=== PATIENT | male | born 1945 | race Caucasian/White ===

== ENCOUNTER 2018-07-19 06:01 | Inpatient (IN) | payer OTHER, SELFPAY ==
[2018-07-01 10:51] VITALS: BMI 27.1
[2018-07-19] VITALS (17 sets, daily range): BP systolic 87–113; BP diastolic 53–75; PULSE 18–98; RESP 10–18; TEMP 36–36.9; O2SAT 93–100; BMI 27.1
[2018-07-19] MEDS: LACTATED RINGERS 1,000 ML 42 ML IV ×2 (07:09→12:05)
--- NOTE | 2018-07-19 08:00 | DI.RAD.S_ITS ---
PROCEDURE: XR LUMBAR SPINE 2-3V INDICATIONS: L4-5, L5-S1 TLIF TECHNIQUE: 2 views of the lumbar spine were acquired. COMPARISON: [facility] [place], [place]R LUMBAR SPINE FLEXION EXTENSION, 11/30/2017, 13:45. FINDINGS: Bones: Postsurgical changes compatible with L4-L5 and L5-S1 TLIF. Orthopedic hardware is intact. No lucencies at the bone hardware interface. Orthopedic hardware is in expected position. There is normal bony alignment. No vertebral body compression fractures. No suspicious bony lesions. Soft tissues: Overlying bowel gas pattern is normal. No suspicious soft tissue calcifications. IMPRESSION: Expected postsurgical change from L4-L5 and L5-S1 TLIF. Dictated by: Sammie Haji MD, PhD on 07/19/2018 at 11:34 Approved by: Sammie Haji MD, PhD on 07/19/2018 at 11:36
[2018-07-19] MEDS: CEFAZOLIN 2 GM/100 ML FROZ.PIGGY IV ×3 (08:15→23:38)
--- NOTE | 2018-07-19 08:57 | SUR.OPER ---
Prone on spine table, head in foam head support, padded chest and pelvic supports, gel pad at knees, lower legs supported by pillows; nipples, genitalia and toes free of pressure, arms secured on foam padded arm boards at <90 degrees abduction. Tape over blanket at thigh secured to table. Gel pad between heels.
[2018-07-19] MEDS: BUPIVACAINE LIPOSOME 266 MG/20 ML VIAL INJ (09:09)
[2018-07-19] MEDS: BUPIVACAINE 0.25% W/ EPI VIAL 50 ML INJ (09:09)
--- NOTE | 2018-07-19 10:05 | PC.NURSE ---
Day shift: Pt not on the AC unit at this time. Will chart/assess after Pt arrives.
--- NOTE | 2018-07-19 11:26 | PM.PREOP ---
Pre-operative Note Interval Note Pre-op Check: Yes History & Physical Reviewed by Physician, Yes Exam Performed and Yes History & Physical exam performed today by Physician Changes: No
--- NOTE | 2018-07-19 11:30 | P.OP_ITS ---
Operative Date/Time/Diagnoses Date of procedure: 07/19/18 Time of procedure: 08:26 Pre-op diagnosis: 1. L4-5, L5-S1 spinal stenosis 2. L4-5, L5-S1 spondylosis with radiculopathy Post-op diagnosis: same Procedure & Clinicians Procedure: 1. L4-5, L5-S1 Postero-lateral and posterior interbody fusion 2. L4-5, L5-S1 interbody cage placement. 3. L4-5, L5-S1 decompressive laminectomy with bilateral facetecomies 4. L4-5, L5-S1 Posterior segmental instrumentation 5. Swoope of bone marrow from iliac crest 6. Utilization of microsurgical technique and operating microscope Same procedure as scheduled: Yes Indications: Patient has been having chronic back pain and worsening lumbar radiculopathy. Patient failed multiple conservative management with worsening pain weakness and numbness in her lower extremity. Patient has been having difficulty performing activity of daily living. After discussing risks benefits of treatment options, patient elected proceed with surgery. Surgeon: Melisa Cohen Printing Table Hand: Demetria Orellana Click Yes if Unassisted: No Anesthesia Type: General Operative Notes Closure Type: primary Specimen(s): none sent Implants & Drains: Globus revolve screws and Rise cages Applied: catheter Estimated Blood Loss (mL): 100 Blood products transfused: none Procedure in detail: Patient was seen in the preoperative area. Risks and benefits of the surgery was discussed with the patient. Informed consent was obtained from the patient and placed in the chart. Surgical site was marked. Patient was taken to the operative room. General anesthesia was administered. Prophylactic antibiotic was given to the patient less than 30 min before the incision was made. Patient was placed into a prone position on the Dmitriy table. Patient's back was then prepped and draped in the sterile fashion. Time- out was performed at this time. Using AP and lateral C-arm imaging the interval between L4-S1 was identified and marked on patient's back. A 2 inch incision 2 in from midline was made on the right side first. The fascia was incised in line with skin incision. Globus MARS retractors was placed inside the incision and docked onto the L4 and L5 lamina. Using microsurgical technique and operating microscope, a L4 and L5 laminectomy and L4-5 L5-S1 facetectomy was performed using a Kerrison rongeur. The disc space at L4-5, L5-S1 was identified. And a total diskectomy was performed at L4-5, L5-S1 level. The endplates were decorticated using a rasp and shaver. The total diskectomy and decortication was performed at L4-5, L5-S1 level in order to to accomplish a L4-5, L5-S1 fusion. The local bone from the laminectomy and facetectomy was saved for local bone grafting. After the total diskectomy and decortication was completed, Globus viacell bone graft material was combined with local bone that was harvested earlier. At this time , a separate skin is incision was made over the iliac crest. A Jamshidi needle was inserted into the iliac crest through a separate skin incision. 5 cc of bone marrow aspiration was obtained through the separate skin incision using a Jamshidi needle from the iliac crest. The bone marrow aspiration was combined with local bone and the via cell bone grafting material. The bone grafting material was placed into the L4-5, L5-S1 interbody space along with two cages, one expandable cage at each level. The cages were expanded to their maximum height using the torque limiting screwdriver. At this time a mirror image incision was made on the left side. The fascia was incised in line with the skin incision. Globus MARS retractor was inserted and docked onto the L4-5, L5-S1 posterolateral gutter. Using the power drill, posterior-lateral decortication was performed at L4-5, L5-S1 level until bleeding cortical bone was identified. The remaining bone grafting material was placed into the L4-5 L5-S1 posterior lateral gutter he order to accomplish posterolateral fusion at the L4-5 L5-S1 levels. Using the double C-arm technique, pedicle screws were placed into the L4, L5, S1 pedicles bilaterally. This was done by placing the Jamshidi needle into the pedicles, then placing the guidewires over the Jamshidi needle, and finally placing the cannulated screws over the guidewires bilaterally. After the pedicle screws were placed, 2 titanium rods was locked into the heads of the pedicle screws using locking caps and torque limiting screwdriver. Total 6 pedicles screws were placed. After all the hardware was placed, and confirmed with AP and lateral C-arm imaging, the wound was then irrigated with sterile normal saline and packed with Ray-Gabriela gauze for 3 min to accomplish hemostasis. After the gauze was removed the deep fascia was closed with #1 Vicryl suture. The subcutaneous layer was closed with 2-0 Vicryl. The skin was closed with skin patricio. Patient tolerated the procedure well. There were no complications. Complications: none Condition: stable Disposition: Acute Care Plan for aftercare: Admit [facility]
--- NOTE | 2018-07-19 12:44 | PC.NURSE ---
Day shift: On unit at approx 1245 from PACU. Arrived on AC bed. No pain. No nausea. Dressing CDI. CMS ok. PPP. Oriented to room and call light. Bed alarm is on. Agrees to not get OOB w/o help. Dyer patent and draining to gravity.
[2018-07-19] MEDS: SODIUM CHLORIDE 0.9% 1,000 ML 100 ML IV ×2 (13:22→23:38)
[2018-07-19] MEDS: OXYCODONE IR 5 MG TABLET 10 MG PO ×2 (19:36→23:38)
[2018-07-19] MEDS: LOSARTAN 50 MG TABLET PO (20:25)
[2018-07-19] MEDS: BACLOFEN 10 MG TABLET 30 MG PO (20:25)
[2018-07-19] MEDS: AMOXICILLIN 250 MG CAPSULE 500 MG PO (20:27)
[2018-07-19] MEDS: SENNOSIDES 8.6 MG TABLET 17.2 MG PO (20:27)
[2018-07-19] MEDS: DOCUSATE 100 MG CAPSULE PO (20:27)
[2018-07-19] MEDS: CARVEDILOL 12.5 MG TABLET PO (20:27)
[2018-07-19] MEDS: hydrOXYzine pamoate 25 MG CAPSULE PO (20:27)
[2018-07-20] MEDS: OXYCODONE IR 5 MG TABLET 10 MG PO ×2 (04:11→08:20)
[2018-07-20 04:40] VITALS: BP 94/56; PULSE 82; RESP 15; TEMP 36.6; O2SAT 96
[2018-07-20 04:45] VITALS: O2SAT 96
[2018-07-20 06:06] LABS: Hematocrit 34.5 % (41-53); Hemoglobin 11.6 g/dL (13.5-17.5)
--- NOTE | 2018-07-20 07:30 | PM.PNPO.1 ---
Subjective Date Patient Seen: 07/20/18 Time Patient Seen: 07:30 Interval history: Patient is postop day 1. Status post lumbar fusion by Dr. Cohen. States pain is tolerable with her current pain medications of oxycodone 10 mg and Vistaril. Has not been up yet out of bed. Plan is for the patient to be discharged home when stable. Denies any difficulty breathing or chest pain. Exam Vital Signs (past 8 hours): - 07/19/18 23:44 07/20/18 04:40 07/20/18 04:45 Temperature 98.2 F 97.9 F Pulse Rate 84 82 Respiratory Rate 18 15 Blood Pressure 98/55 L 94/56 L Pulse Oximetry 94 96 96 Oxygen Delivery Method Nasal Cannula Oxygen Flow Rate 0 Narrative Exam Narrative: Patient in bed. Appears comfortable. Alert and orient x3. Back dressing clean dry and intact. 5/5 BLE strength. Bilateral calves soft and nontender. Neurovascular status intact. Objective Labs Result Diagrams: 07/20/18 05:40 Labs: Laboratory Results - last 24 hr 07/20/18 05:40 Hgb 11.6 L Hct 34.5 L Assessment & Plan Post-op Postoperative Procedures Operation Date: 07/19/18 07:45 Actual Procedures Side Surgeon p L4-5, L5-S1 TLIF w/Posterior Instru. Melisa Cohen MD Postop day 1. Patient ambulated with physical therapy today. Continue pain medication as needed. Plan to discharge home when stable. Quality VTE Deep Vein Thrombosis/Pulmonary Embolism Present on Admission: No
[2018-07-20 08:15] VITALS: BP 101/53; PULSE 77; RESP 16; TEMP 36.5; O2SAT 95
[2018-07-20] MEDS: AMOXICILLIN 250 MG CAPSULE 500 MG PO (08:22)
[2018-07-20] MEDS: ATORVASTATIN 20 MG TABLET 40 MG PO (08:22)
[2018-07-20] MEDS: DOCUSATE 100 MG CAPSULE PO (08:23)
[2018-07-20] MEDS: CARVEDILOL 12.5 MG TABLET PO (08:23)
[2018-07-20] MEDS: SPIRONOLACTONE 25 MG TABLET PO (08:24)
[2018-07-20] MEDS: LOSARTAN 50 MG TABLET PO (08:24)
--- NOTE | 2018-07-20 09:20 | PT.IIE ---
Current Diagnoses Other spondylosis with radiculopathy, lumbar region (07/19/18) Spinal stenosis, lumbar region with neurogenic claudication (07/19/18) Surgery Performed Operation Date: 07/19/18 07:45 Actual Procedures p L4-5, L5-S1 TLIF w/Posterior Instru. - Melisa Cohen MD Surgical History (Last Updated 07/01/18 @ 11:23 by Yennifer Hoskins, RN) History of vasectomy (Acute) Hx of hernia repair (Acute) S/P coronary artery stent placement (Acute) Status post cataract extraction of both eyes with insertion of intraocular lens (Acute) Status post wrist surgery (Acute) Medical History (Last Updated 07/01/18 @ 11:17 by Yennifer Hoskins RN) Arthritis (Acute) Back pain (Acute) CAD (coronary artery disease) (Acute) CHF (congestive heart failure) (Acute) Erectile dysfunction (Acute) HTN (hypertension) (Acute) Hyperlipidemia (Acute) LBBB (left bundle branch block) (Acute) Lesion of nose (Acute) Myocardial infarction (Acute) Presence of combination internal cardiac defibrillator (ICD) and pacemaker (Acute) Seasonal allergies (Acute) Sinus bradycardia (Acute) Tuberculosis (Acute) Physical Therapy Inpatient Evaluation/Re-Eval M1 PT/OT-IP Prior Functional Status Start: 07/20/18 12:49 Freq: NEEDED Status: Active Protocol: Document 07/20/18 09:20 AB (Rec: 07/20/18 13:00 AB [id number]) Medical Review Prior Functional Status Medical History Reviewed Yes Communication able to make needs known Mobility and Gait pt stated that he is independent with all mobilities and ambulation without AD Social History Household Members spouse Living Arrangements House Number of Floors (Floors) One Floor Number of Stairs To Enter/Railing? 2 steps without rails Home Environment Tub/Shower Home Equipment Four Wheel Walker Straight Cane Bedside Commode Raised Toilet Seat Without Armrests Shower Seat with Backrest Hand Held Shower Employment Status Retired M2 PT-IP Current Condition Start: 07/20/18 12:49 Freq: NEEDED Status: Active Protocol: Document 07/20/18 09:20 AB (Rec: 07/20/18 13:00 AB [id number]) Physical Therapy Current Condition Current Condition Evaluation Date 07/20/18 Treatment Diagnosis s/p L4-5, L5S1 fusion/ laminectomy; difficulty in walking Onset Date 07/19/18 Precautions Lumbar Precautions Log Roll No Twisting Limit Bending Lifting Restriction of 10 lbs Gait Belt above Incisional Area M3 PT-IP Subjective Start: 07/20/18 12:49 Freq: NEEDED Status: Active Protocol: Document 07/20/18 09:20 AB (Rec: 07/20/18 13:00 [id number]) Subjective Physical Therapy Visit Type Type Initial Evaluation Visit Start Time 09:20 Visit Stop Time 10:05 Total Visit Minutes 45 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 Physical Therapy Visit Comments Patient Comments pt agreeable to do PT Therapy Pain Assessment Pain When Pain Assessed At Rest Pain Present Pain Present Pain Reported Location Back Intensity 1 Scale Used Numeric (1 - 10) Pain Management Techniques Apply Cold Re-positioning Timing of Activity with Medications M4 PT-IP Mobility and Gait Start: 07/20/18 12:49 Freq: NEEDED Status: Active Protocol: Document 07/20/18 09:20 AB (Rec: 07/20/18 13:00 [id number]) PT-Bed Mobility Assessment Rolling Type of Rolling Log Rolling Level of Assist Standby Assistance Supine to Sit Supine to Sit Standby Assistance Sit to Supine Sit to Supine Standby Assistance Scooting Scooting to Edge of Bed Standby Assistance PT-Transfer Assessment Sit to and From Stand Sit to and from Stand Standby Assistance Equipment Transfer Assistive Device Gait Belt Front Wheeled Walker Orthotic/Prosthetic Devices or Brace: No Transfers Transfer Destination Bed Transfer Technique Stand Step Pivot Transfer Ability Level of Assist Standby Assistance Gait Assessment Gait Gait Assistance Required: Standby Assistance Distance (Feet) 150 Able to Maintain Weight Bearing Status Yes During Gait Assistive Devices Assistive Device Gait Belt Front Wheeled Walker Gait Deviations General Gait Pattern Decreased Stride Length Decreased Feet Clearance Factors Limiting Gait Function Factors Limiting Gait Function Decreased Activity Tolerance Decreased Strength Limited Range of Motion Pain Poor Balance Comments Gait Comments pt ambulated 50+50+150 ft using FWW SBA and cues Stair Climbing Assessment Evaluation Level of Assist On Stairs Contact Guard Assistance Devices Stair Climbing Assistive Devices Straight Cane Technique/Endurance Stair Climbing Direction Ascend and Descend Stair Climbing Technique Step to Step Number of Steps Climbed 3 Query Text: Stair Climbing Set # Repetitions (reps) 2 Comments Stair Climbing Comments pt completed up/down steps using bilateral rails and requing SBA; assessed without AD and pt requiring CGA to min A with cues. pt was unsteady without use of rails/ AD with stair climbing. assessed stair climbing using SPC and pt completed CGA and cues and educated on safety and techniques to increase stability. PT-Balance Assessment Sitting Balance and Reactions Static Sitting Balance Ability Good Dynamic Sitting Balance Ability Good Standing Balance and Reactions Static Standing Balance Ability Fair Dynamic Standing Balance Ability Fair Device Used FWW M5 PT-IP Objective Assessments Start: 07/20/18 12:49 Freq: NEEDED Status: Active Protocol: Document 07/20/18 09:20 AB (Rec: 07/20/18 13:00 AB [id number]) Orientation Orientation/Cognition Level of Alertness Alert Orientation Name Age Birthday Month Date Year Day of Week Place Situation Safety Awareness Understands Safety Issues Gross Range of Motion Lower Extremity ROM Assessment Within Functional Limits Strength Lower Extremity Strength Assessment Within Functional Limits Sensation Assessment Sensation Gross Sensation WNL Muscle Tone Muscle Tone WNL Yes M6 PT-IP Treatment Start: 07/20/18 12:49 Freq: NEEDED Status: Active Protocol: Document 07/20/18 09:20 AB (Rec: 07/20/18 13:00 AB [id number]) Physical Therapy Treatment Education Education Provided Precautions Weight Bearing Status Post-Op Packet Safety M7 PT-IP Assessment and Plan Start: 07/20/18 12:49 Freq: NEEDED Status: Active Protocol: Document 07/20/18 09:20 AB (Rec: 07/20/18 13:00 AB [id number]) PT Summary Assessment and Plan Potential Rehabilitation Potential Good Status of Condition at Evaluation Stable Summary Impairments Pain ROM Strength Balance Coordination Sensation Tone Cognition Bed Mobility Transfers Gait Activity Tolerance Assessment Summary pt requiring SBA to CGA with mobility and plans to go home with spouse to assist him. pt may go home when medically stable. Goals Bed Mobility Goal Independent Transfer Goal Independent Gait Goal Independent Gait Distance 200 Other Goals up/down 2 steps without rails/ without AD or least restrictive device SBA Days to Meet Goals 2 Frequency of Treatment Frequency Of Treatment Twice a Day Treatment Plan Physical Therapy Treatment Plan Bed Mobility Training Transfer Training Gait Training Therapeutic Exercise Balance Retraining Post Op Education Discharge Planning Hot or Cold Pack Neuromuscular Re-ed Coordination Retraining Manual Therapy Other Recommendations and Next Treatment bed mobility, ambulation, Focus stair climbing Recommendations To Nursing Amount of Assist Needed Standby Assistance Discharge Recommendations PT Discharge Recommendations Home with Assistance
--- NOTE | 2018-07-20 10:39 | P.DS_ITS ---
History of Present Illness Date Patient Seen: 07/20/18 Time Patient Seen: 10:35 Chief complaint: L4-5 L5-S1 TLIF codes/collection notes Narrative: Details of the patient's H&P can be found on the electronic chart. Discharge Providers Date of admission: 07/19/18 06:01 Consults: 07/19/18 12:44 Consult to Occupational Therapy Evaluate & Treat Comment: Physician Instructions: Evaluate and treat Consult to Physical Therapy Evaluate & Treat Comment: Physician Instructions: Evaluate and Treat Discharge provider: Chloe Palma PA-C Summary Discharge Diagnosis: 1. L4-5, L5-S1 spinal stenosis 2. L4-5, L5-S1 spondylosis with radiculopathy Hospital Course: Patient was admitted and taken operating room where he had a L4 -5, L5-S1 TLIF by Dr. Cohen. He recovered well in 2nd floor for further care. Postop day 1 patient was ambulating well, eating and drinking well, pain under control, and urinating without difficulty. He was ready to be discharged home. Prescription for oxycodone 5 mg at discharge. Patient will follow up in the office in 10-14 days. Activity as tolerated with Lifting, bending, twisting precautions. Status at Discharge Cognitive/behavioral status at discharge: Alert and orient x3 Functional status at discharge: uses cane/walker Time Spent with Patient Less than 30 minutes Exam Vital Signs (past 8 hours): - 07/20/18 04:40 07/20/18 04:45 07/20/18 08:15 Temperature 97.9 F 97.7 F Pulse Rate 82 77 Respiratory Rate 15 16 Blood Pressure 94/56 L 101/53 L Pulse Oximetry 96 96 95 Oxygen Delivery Method Nasal Cannula Oxygen Flow Rate 0 Narrative Exam Narrative: Patient sitting in chair. Appears comfortable. Alert and orient x3. Back dressing clean dry and intact. 5/5 BLE strength. Bilateral calves soft and nontender. Neurovascular status intact. Objective Labs Result Diagrams: 07/20/18 05:40 Labs: Laboratory Results - last 24 hr 07/20/18 05:40 Hgb 11.6 L Hct 34.5 L Discharge Plan Discharge Plan Patient Disposition: Home Discharge comment: May take oxycodone with acetaminophen but no more than 4000 mg of acetaminophen total per day from all sources. Discharge Med Rec/Prescriptions Prescriptions: New oxycodone 5 mg Tablet 5 mg PO Q4H PRN (Reason: Pain, Severe (7-10)) Qty: 60 RF: 0 acetaminophen 325 mg Tablet 650 mg PO Q6HR PRN (Reason: Pain, Mild (1-3)) Qty: 0 RF: 0 Continue losartan 50 mg Tablet 50 mg PO BID RF: 0 atorvastatin 40 mg Tablet 40 mg PO QAM RF: 0 carvedilol 12.5 mg Tablet 12.5 mg PO BID RF: 0 aspirin [Aspir-81] 81 mg Tablet,Delayed Release (Dr/Ec) 81 mg PO DAILY RF: 0 spironolactone 25 mg Tablet 25 mg PO QAM RF: 0 baclofen 10 mg Tablet 30 mg PO BEDTIME RF: 0 nitroglycerin 0.4 mg Tablet, Sublingual 0.4 mg SUBLINGUAL Q5-15M PRN (Reason: Chest Pain) RF: 0 furosemide 20 mg Tablet 20 mg PO DAILY PRN (Reason: Edema) RF: 0 zolpidem 10 mg Tablet 10 mg PO BEDTIME PRN (Reason: Sleep) RF: 0 amoxicillin 500 mg 500 mg TID RF: 0 Follow up/Referrals: Melisa Cohen MD [Physician] - (Follow-up at scheduled visit date and time. Contact office with any issues or concerns.) Provider Discharge Instructions Diet: Diet as Tolerated Activity: Activity as tolerated. No heavy lifting, bending or twisting. Cold/Heat Therapy: Apply ice for swelling or inflammation but not directly onto the skin. Skin/Wound/Dressing Care Report to your healthcare provider any signs of infection, such as:: chills, fever, increased pain and unusual drainage Dressing: Keep dressing clean dry and intact. May shower. Visit Report/Discharge Packet Instructions: DI for Transforaminal Lumbar Interbody Fusion Discharge Data Attending Provider: Melisa Cohen Admit Date/Time: 07/19/18 06:01 Quality VTE Deep Vein Thrombosis/Pulmonary Embolism Present on Admission: No
--- NOTE | 2018-07-20 11:02 | OT.IP.EVAL ---
Current Diagnoses Other spondylosis with radiculopathy, lumbar region (07/19/18) Spinal stenosis, lumbar region with neurogenic claudication (07/19/18) Surgery Performed Operation Date: 07/19/18 07:45 Actual Procedures p L4-5, L5-S1 TLIF w/Posterior Instru. - Melisa Cohen MD Past Medical History (Last Updated 07/01/18 @ 11:17 by Yennifer Hoskins RN) Arthritis (Acute) Back pain (Acute) CAD (coronary artery disease) (Acute) CHF (congestive heart failure) (Acute) Erectile dysfunction (Acute) HTN (hypertension) (Acute) Hyperlipidemia (Acute) LBBB (left bundle branch block) (Acute) Lesion of nose (Acute) Myocardial infarction (Acute) Presence of combination internal cardiac defibrillator (ICD) and pacemaker (Acute) Seasonal allergies (Acute) Sinus bradycardia (Acute) Tuberculosis (Acute) Surgical History (Last Updated 07/01/18 @ 11:23 by Yennifer Hoskins RN) History of vasectomy (Acute) Hx of hernia repair (Acute) S/P coronary artery stent placement (Acute) Status post cataract extraction of both eyes with insertion of intraocular lens (Acute) Status post wrist surgery (Acute) Occupational Therapy Inpatient Evaluation/Re-Eval M1 PT/OT-IP Prior Functional Status Start: 07/20/18 12:49 Freq: NEEDED Status: Active Protocol: Document 07/20/18 11:02 TRINH (Rec: 07/20/18 14:02 TRINH [id number]) Medical Review Prior Functional Status Medical History Reviewed Yes Diet/Fluid Consistency Regular Communication WNL Mobility and Gait pt stated that he is independent with all mobilities and ambulation without AD Activities of Daily Living and IADL's Pt independent with self are and 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 Prior Functional Level (Other details) Supportive can provide 24 hr assist after d/c. Pt/ familiar with lumbar spine precautions from 's back surgery 1 yr ago. Social History Household Members spouse Living Arrangements House Number of Floors (Floors) One Floor Number of Stairs To Enter/Railing? 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 M2 OT-IP Current Condition Start: 07/20/18 13:48 Freq: Status: Active Protocol: Document 07/20/18 11:02 PJM (Rec: 07/20/18 14:02 PJ [id number]) Occupational Therapy Current Condition Current Condition Evaluation Date 07/20/18 Treatment Diagnosis decreased self care, functional mobility s/p L4-5, L5-S1 TLIF Diagnosis Onset Date 07/19/18 Post Operative Precautions Lumbar Precautions Log Roll No Twisting Limit Bending Lifting Restriction of 10 lbs Gait Belt above Incisional Area M3 OT- IP Subjective and Pain Start: 07/20/18 13:48 Freq: Status: Active Protocol: Document 07/20/18 11:02 PJM (Rec: 07/20/18 14:02 PJ [id number]) OT- Subjective Occupational Therapy Visit Type Type Initial Evaluation Visit Start Time 11:38 Visit Stop Time 12:02 Total Visit Minutes 24 Occupational Therapy Visit Comments Patient Comments My should be here anytime and then I am going home. Patient/Caregiver Goals to resume normal activities with less pain OT Pain Assessment Pain When Pain Assessed After Treatment Pain Present Pain Present Pain Reported Location Back Intensity 2 Scale Used Numeric (1 - 10) Description Aching Acute Pain Behaviors Guarding M4 OT- IP ADL's Start: 07/20/18 13:48 Freq: Status: Active Protocol: Document 07/20/18 11:02 PJM (Rec: 07/20/18 14:02 PJ [id number]) OT BAR-Mlvg-[id number] General Evaluation Diet Level for Self-Feeding general Self-Feeding Ability Independent OT ADL-Grooming General Evaluation Grooming Ability Independent Comments OT Grooming Comments Provided education re:body mechanics OT ADL-Oral Care General Eval Oral Care Ability Independent Comments Oral Care Comments Provided education re:body mechanics OT ADL-Dressing General Eval Upper Body Dressing Ability Independent Lower Body Dressing Ability Minimal Assistance Moderate Assistance Comments OT Dressing Comments Pt declines transit mixer driver, sock aid and long shoe horn and states will assist with socks PRN. Pt able to get pants over feet with SBA with good body mechanics, states he will wear slip on shoes. OT ADL-Toileting General Evaluation Toileting Ability Independent Comments OT Toileting Comments Provided education re:body mechanics OT ADL-Bathing Bathing Type Bathing Type Shower Devices Bathing Equipment Long Handled Sponge or Body Stylist Held Shower Sprayer Tub Transfer Bench Comments OT Bathing Comments Pt declined to shower here; provided education re: shower curtain modifications for transfer tub seat and body mechanics. Recommend long bath sponge. will obtain for pt. There are no grab bars in tub area. can assist PRN. M5 OT- IP IADL's Start: 07/20/18 13:48 Freq: Status: Active Protocol: Document 07/20/18 11:02 PJM (Rec: 07/20/18 14:02 [facility] [id number]) OT-Instrumental Activities of Daily Living Deficits IADL Deficits Identified Deficits Home Safety Awareness Awareness of Need for Assistance at Home Good Awareness Ability to Problem Solve Emergency Able to Problem Solve Situations Medication Management Medication Management No Deficits Identified Money Management Money Management No Deficits Identified Meal Preparation Meal Preparation Caregiver Provides Assist Meal Preparation Comments to assist until pt able. Funeral Arranger Funeral Arranger Caregiver Provides Assist Funeral Arranger Comments to assist until pt able. Driving Driving Caregiver Provides Assist Driving Comments to assist until pt able. M6 OT- IP Functional Cognition Start: 07/20/18 13:48 Freq: Status: Active Protocol: Document 07/20/18 11:02 PJM (Rec: 07/20/18 14:02 [facility] [id number]) Cognitive Factors Limiting Selfcare Function Cognitive Ability Level of Alertness Alert Patient Orientation Name Age Birthday Month Date Year Day of Week Place Situation Attention Span Ability Capable of Focused Attention Capable of Sustained Attention Ability to Follow Commands Able to Follow One Step Commands Memory Description No Deficits Noted Safety Awareness Underestimates Need for Assistance Problem Solving Ability No deficits Noted Cognitive Comments Cognitive Assessment Comments Provided education to pt that lumbar spine precautions apply until surgeon discontinues them as he planned to take it easy for one week. OT- Vision and Hearing OT- Hearing Assessment OT- Hearing Assessment WFL OT- Vision Assessment Vision Assessment Comments Pt denies any recent changes. M7 OT- IP Mobility and Balance Start: 07/20/18 13:48 Freq: Status: Active Protocol: Document 07/20/18 11:02 PJM (Rec: 07/20/18 14:02 [facility] [id number]) OT-Transfer Assessment Comments Mobility Comments Pt seen up in chair. See P.T. notes. OT- Gait Assessment Comments Gait Ability Comments Pt seen up in chair. See P.T. notes. OT- Balance Assessment Comments Other Balance Tests/Deviations/Treatment Pt seen up in chair. See P.T. : notes. M8 OT- IP Objective Assessments Start: 07/20/18 13:48 Freq: Status: Active Protocol: Document 07/20/18 11:02 PJ (Rec: 07/20/18 14:02 [facility] [id number]) OT Gross Range of Motion Upper Extremity Range of Motion Assessment Within Functional Limits OT Strength Upper Extremity Strength Assessment Within Functional Limits OT- Coordination Assessment Comments Coordination Comments BUE WFL OT-Muscle Tone Assessment Muscle Tone WNL Yes OT Sensation Assessment Comments Summary Comments Pt denies deficits in BUE's Edema Edema Absent M9 OT- IP Assessment and Plan Start: 07/20/18 13:48 Freq: Status: Active Protocol: Document 07/20/18 11:02 PJ (Rec: 07/20/18 14:02 [facility] [id number]) OT Summary Assessment and Plan Potential Rehabilitation Potential Good Analytic Complexity at Evaluation Low Summary Assessment Summary Low complexity OT assessment and all OT education completed in one session. Pt familiar with lumbar spine precautions from 's back surgery 1 year ago. He declines any lower body dressing equipment as he prefers to assist PRN. He has all necessary bathroom safety equipment. Pt plans to d/c home today with 24 hr assist from supportive . No further OT services needed. Frequency of Treatment Frequency Of Treatment Discharge Discharge Recommendations OT Discharge Recommendations Home with Assistance Home with 24/7 Assist Home Equipment Needs none
[2018-07-20] MEDS: ACETAMINOPHEN 325 MG TABLET 650 MG PO (11:50)
--- NOTE | 2018-07-20 14:48 | PC.NURSE ---
Day shift: Pt left unit at approx 1415. Went to private car w/ spouse via WC and RESEARCH PHARMACIST. Paperwork signed and he has all personal belongings. All questions answered.
== END 2018-07-20 14:50 | disposition home or self-care (01) | DRG 455 ==
PROVIDERS: Admitting Provider Orthopaedic Surgery Orthopaedic Surgery of the Spine; Visit Provider Orthopaedic Surgery Orthopaedic Surgery of the Spine
PROC: 0SG00AJ Fusion of Lumbar Vertebral Joint with Interbody Fusion Device, Posterior Approach, Anterior Column, Open Approach (ICD-10-PCS; principal; 2018-07-19 07:45)
DX: M48.061 Spinal stenosis, lumbar region without neurogenic claudication (principal); M47.26 Other spondylosis with radiculopathy, lumbar region; I25.10 Atherosclerotic heart disease of native coronary artery without angina pectoris; Z95.828 Presence of other vascular implants and grafts; I50.9 Heart failure, unspecified; F32.9 Major depressive disorder, single episode, unspecified; Z87.891 Personal history of nicotine dependence; M48.07 Spinal stenosis, lumbosacral region; M47.27 Other spondylosis with radiculopathy, lumbosacral region
CPT/HCPCS: 36415; 72100; 76001; 85014; 85018; 97116; 97161; 97165; C1776; C9290; J0131; J0330; J0690; J1100; J1170; J2250; J2405; J2704; J3010

== ENCOUNTER → 2021-09-20 14:26 | Outpatient (CLI) | payer MEDICARE, SELFPAY ==
[2018-07-19 12:57] VITALS: BMI 27.1
[2021-09-20] MEDS: COVID-19 VACC #3, MRNA(MOD) 50 MCG/0.25 ML VIAL IM (14:31)
== END ==
PROVIDERS: Visit Provider Internal Medicine
DX: Z23 Encounter for immunization (principal)
CPT/HCPCS: 0013A; 91301